=== PATIENT | female | born 1980 | race Caucasian/White ===

== ENCOUNTER → 2016-09-20 | Outpatient (CLI) | payer BC | LOC: OD 11:15 | PROVIDERS: ATTEND Nurse Practitioner Acute Care | DX: N39.0 Urinary tract infection, site not specified (principal) | CPT/HCPCS: 87086; 87088; 87186 ==

== ENCOUNTER 2019-09-27 19:12 | Emergency (ER) | payer BC ==
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
[2019-09-27 20:41] LABS: ABSOLUTE EOSINOPHILS # (AUTO) 0.1 10^3/uL (0.0-0.6); ABSOLUTE LYMPHOCYTES (AUTO) 3.8 10^3/uL (0.5-4.7); ABSOLUTE MONOCYTES (AUTO) 0.8 10^3/uL (0.1-1.4); ABSOLUTE NEUT (AUTO) 3.6 10^3/uL (1.7-8.2); BASOPHILS % (AUTO) 0.5 % (0-2); EOSINOPHILS % (AUTO) 1.6 % (0-6); HEMATOCRIT 40.8 % (36.0-47.0); HEMOGLOBIN 13.9 g/dL (12.0-15.5); LYMPHOCYTES % (AUTO) 45.5 % (13-45); MEAN CORPUSCULAR HEMOGLOBIN 32.5 pg (27.0-33.4); MEAN CORPUSCULAR HGB CONC 34.2 g/dL (32.0-36.0); MEAN CORPUSCULAR VOLUME 95 fl (80-97); MONOCYTES % (AUTO) 9.6 % (3-13); PLATELET COUNT 255 10^3/uL (150-450); RED BLOOD COUNT 4.28 10^6/uL (3.72-5.28); RED CELL DISTRIBUTION WIDTH 12.1 % (11.5-14.0); SEGMENTED NEUTROPHILS % (AUTO) 42.8 % (42-78); TOTAL CELLS COUNTED % (AUTO) 100 %; WHITE BLOOD COUNT 8.3 10^3/uL (4.0-10.5)
[2019-09-27 20:47] LABS: ACETAMINOPHEN 47 ug/mL (10-30); ALBUMIN 4.9 g/dL (3.5-5.0); ALCOHOL 178 mg/dL (NONE DETECTED); ALKALINE PHOSPHATASE 37 U/L (38-126); ANION GAP 12 (5-19); ASPARTATE AMINO TRANSFERASE 26 U/L (14-36); BILIRUBIN,TOTAL 0.3 mg/dL (0.2-1.3); BLOOD UREA NITROGEN 6 mg/dL (7-20); CALCIUM 9.4 mg/dL (8.4-10.2); CARBON DIOXIDE 26 mmol/L (22-30); CHLORIDE 103 mmol/L (98-107); POTASSIUM 4.2 mmol/L (3.6-5.0); TOTAL PROTEIN 8.1 g/dL (6.3-8.2)
[2019-09-27 20:50] LABS: SALICYLATE < 1.0 mg/dL (2.0-20.0)
[2019-09-27 20:52] LABS: GLUCOSE 69 mg/dL (75-110)
[2019-09-27 21:02] LABS: APPEARANCE,URINE CLEAR; BILIRUBIN,URINE NEGATIVE (NEGATIVE); COLOR,URINE STRAW; GLUCOSE, URINE NEGATIVE (NEGATIVE); KETONES,URINE NEGATIVE (NEGATIVE); LEUKOCYTE ESTERASE,URINE NEGATIVE (NEGATIVE); NITRITE,URINE NEGATIVE (NEGATIVE); PROTEIN,URINE NEGATIVE (NEGATIVE); URINE SPECIFIC GRAVITY 1.004; UROBILINOGEN,URINE NEGATIVE mg/dL (<2.0)
[2019-09-27 21:13] LABS: URINE AMPHETAMINES SCREEN NEGATIVE; URINE BARBITURATES SCREEN NEGATIVE; URINE BENZODIAZEPINES SCREEN NEGATIVE; URINE COCAINE SCREEN NEGATIVE; URINE MARIJUANA (THC) SCREEN NEGATIVE; URINE METHADONE SCREEN NEGATIVE; URINE PHENCYCLIDINE SCREEN NEGATIVE
--- NOTE | 2019-09-28 00:41 | ER Document Report ---
ED General - General Chief Complaint: Suicidal Ideation Stated Complaint: INTOXICATED,POSSIBLE OVERDOSE Time Seen by Provider: 09/27/19 19:22 Primary Care Provider: DAVID ABREU, STUDIO GRIP [NURSE PRACTITIONER] - Follow up as needed Mode of Arrival: Ambulatory TRAVEL OUTSIDE OF THE [place] IN LAST 30 DAYS: No - HPI Notes: 39-year-old female brought in tonight by her after she expressed suicidal ideation at home. It was noted that she had been drinking wine earlier in the day consuming a whole bottle and subsequently she apparently also took some NyQuil and made statements about wishing to harm herself. She indicated that she intended to cut her wrists. Patient is active duty and apparently had been seeing a counselor through the [facility] recently for major depression. She is not currently on anti-antidepressant. She denies auditory verbal hallucinations. She says she and her are going through a separation at this time and she feels very depressed about this. She denies any use of illicit drugs. - Related Data Allergies/Adverse Reactions: Penicillins Allergy (Unknown, Verified 10/16/14 01:10) codeine [Codeine] Allergy (Verified 10/16/14 01:10) Past Medical History - General Information source: Patient, Relative - Social History Smoking Status: Never Smoker Frequency of alcohol use: 1 liter bottle wine, truly x1 Family History: Reviewed & Not Pertinent Patient has suicidal ideation: Yes Patient has homicidal ideation: No - Past Medical History Cardiac Medical History: Denies: Hx Congestive Heart Failure, Hx Heart Attack, Hx Hypertension Pulmonary Medical History: Denies: Hx Asthma, Hx Bronchitis, Hx COPD, Hx Pneumonia, Hx Tuberculosis Neurological Medical History: Denies: Hx Seizures, Hx Parkinson's Disease Renal/ Medical History: Denies: Hx End Stage Renal Disease, Hx Kidney Stones GI Medical History: Denies: Hx Cirrhosis, Hx Gastroesophageal Reflux Disease, Hx Ulcer Musculoskeletal Medical History: Denies Hx Arthritis, Denies Hx Multiple Sclerosis Psychiatric Medical History: Reports: Hx Depression Denies: Hx Bipolar Disorder, Hx Schizophrenia - Immunizations Hx Diphtheria, Pertussis, Tetanus Vaccination: Yes - 2005 Review of Systems - Review of Systems Notes: Constitutional: Negative for fever. HENT: Negative for sore throat. Eyes: Negative for visual changes. Cardiovascular: Negative for chest pain. Respiratory: Negative for shortness of breath. Gastrointestinal: Negative for abdominal pain, vomiting or diarrhea. Genitourinary: Negative for dysuria. Musculoskeletal: Negative for back pain. Skin: Negative for rash. Neurological: Negative for headaches, weakness or numbness. 10 point ROS negative except as marked above and in HPI. Physical Exam - Vital signs Vitals: Temp Pulse Resp BP Pulse Ox 98.2 F 98 20 137/87 H 99 09/27/19 19:50 09/27/19 19:50 09/27/19 19:50 09/27/19 19:50 09/27/19 19:50 - Notes Notes: GENERAL: Middle-age female who appears sleepy and intoxicated. SKIN: Mildly flushed. Good turgor no rashes. HEAD: Normocephalic atraumatic. EYES: Bilateral lid ptosis. PERRLA. EOMI. Conjunctivae and sclerae clear. EARS: CANALS AND TMS CLEAR. NOSE: CLEAR. MOUTH: Moist mucosa. Good dentition. No stridor or edema. No drooling. NECK: Supple. No masses or thyromegaly. No adenopathy. Carotids 2+ without bruits. No JVD. BACK: Symmetrical without tenderness. CHEST: Respirations unlabored. Breath sounds clear and symmetrical. HEART: Regular rhythm. No murmur gallop or rub. ABDOMEN: Soft nontender without masses, organomegaly or rebound. Bowel sounds normally active. No bruits. GENITALIA: Deferred. EXTREMITIES: No edema. No calf tenderness. Cap refill less than 1.5 seconds. Dorsalis pedis and posterior tibial pulses 3+ and symmetrical. NEUROLOGICAL: GCS 15. Appears intoxicated. Slurred speech. Cranial nerves II through XII intact. Sensorimotor normal. Normal tone. Mildly ataxic PSYCHIATRIC: Very flat affect. Course - Re-evaluation Re-evalutation: 09/28/19 00:41 Patient has a blood alcohol 178. Acetaminophen levels x2 were nontoxic range at 4-hour maggie. Urine drug screen negative for substances of abuse. EKG shows normal sinus rhythm with no alteration of intervals. Case was reviewed with [place] poison control. Per their recommendation we are observing her on cardiac monitoring for 4 hours. She appears very stable at this time. I petition for IVC. Patient will be transferred to our psychiatric holding area. - Vital Signs Vital signs: Temp Pulse Resp BP Pulse Ox 98.2 F 98 20 137/87 H 99 09/27/19 19:50 09/27/19 19:50 09/27/19 19:50 09/27/19 19:50 09/27/19 19:50 - Laboratory Result Diagrams: 09/27/19 20:15 09/27/19 20:15 Laboratory results interpreted by me: 09/27/19 09/27/19 09/27/19 20:15 20:15 22:50 Lymph % (Auto) 45.5 H BUN 6 L Glucose 69 L Alkaline Phosphatase 37 L Salicylates < 1.0 L Acetaminophen 47 H 31 H - EKG Interpretation by Me Additional EKG results interpreted by me: 09/28/19 00:43 Twelve-lead EKG from 2046 hrs. reviewed contemporaneously by me demonstrating normal sinus rhythm with a rate of 82. QRS axis is normal at 44 degrees. Intervals are normal. There are no acute ST/T wave changes. Discharge - Discharge Clinical Impression: Suicidal ideation, Alcohol intoxication Anticholinergic drug overdose Qualifiers: Encounter type: initial encounter Injury intent: intentional self-harm Qualified Code(s): T44.3X2A - Poisoning by other parasympatholytics [anticholinergics and antimuscarinics] and spasmolytics, intentional self-harm, initial encounter Major depression Qualifiers: Major depression recurrence: unspecified whether recurrent Active/Remission status: currently active Major depression episode severity: severe Psychotic features: without psychotic features Qualified Code(s): F32.2 - Major depressive disorder, single episode, severe without psychotic features Condition: Good Disposition: PSYCH HOSP/UNIT Referrals: DAVID ABREU NP [NURSE PRACTITIONER] - Follow up as needed
[2019-09-28] MEDS ORDERED: VENLAFAXINE HCL 37.5 MG CAP.SR.24H PO ONE (08:47)
--- NOTE | 2019-09-28 09:40 | EKG REPORT ---
SEVERITY:- NORMAL ECG - SINUS RHYTHM : Confirmed by: Prashanth Urbina MD 28-Sep-2019 09:39:37
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
[2019-09-28 11:51] VITALS: BP 139/85
== END 2019-09-28 12:10 | disposition home or self-care (01) ==
LOC: ER 19:12
DX: T44.3X2A Poisoning by other parasympatholytics [anticholinergics and antimuscarinics] and spasmolytics, intentional self-harm, initial encounter (principal); F10.129 Alcohol abuse with intoxication, unspecified; Y90.6 Blood alcohol level of 120-199 mg/100 ml; F32.2 Major depressive disorder, single episode, severe without psychotic features; Z63.5 Disruption of family by separation and divorce; H02.403 Unspecified ptosis of bilateral eyelids; R23.2 Flushing; Z88.0 Allergy status to penicillin; Z88.6 Allergy status to analgesic agent; Z88.5 Allergy status to narcotic agent
CPT/HCPCS: 93005; 99285; 36415; 80307 ×4; 85025; 81025; 80053; 81001; 93010; J3490